=== PATIENT | male | born 1960 | race Caucasian/White ===

== ENCOUNTER → 2023-12-13 07:51 | Outpatient (REF) | payer OTHER, SELFPAY | LOC: RAD 07:51 | PROVIDERS: ATTENDING PHYSICIAN Surgery Vascular Surgery; FAMILY PHYSICIAN Family Medicine | DX: I73.9 Peripheral vascular disease, unspecified (principal) | CPT/HCPCS: 93922; 93925 ==

== ENCOUNTER 2024-05-21 19:44 | Emergency (ER) | payer OTHER, SELFPAY ==
[2024-05-21 19:49] VITALS: BP 154/84
--- NOTE | 2024-05-21 20:16 | ED.GENMED ---
History of Present Illness
General
Chief Complaint: Chest Pain
Time Seen by Provider: 05/21/24 20:14
History of Present Illness
History of Present Illness:
TIME OF INITIAL ENCOUNTER: 8:20 PM
HPI: At some point yesterday, he had some chest discomfort. It recurred today intermittently throughout the day. His symptoms are not exertional in nature. He has no associated shortness of breath. He had a cath that was relatively unremarkable
[place] [address] Arroyo and is known Dr. Chacon. His symptoms last for just a few minutes at a time. He was never diaphoretic. He has been having some nosebleeds as well and in the past has been thrombocytopenic. At times his symptoms worsen
when he lifts his left arm at the shoulder.
EXAM:
GENERAL: Well appearing in no distress
HEENT: Moist oral mucosa, no active bleeding to either nostril
CARDIOVASCULAR: No murmurs, normal heart rate, regular rhythm, No chest wall tenderness
PULMONARY: No respiratory distress, breath sounds are clear and equal
ABDOMEN: Soft with no peritoneal signs, no tenderness
NEUROLOGIC: Excellent strength all extremities, no coordination deficits
PSYCHIATRIC: Appropriate mental status, normal insight and judgement
EXTREMITIES: Nontender, no edema, moves all extremities equally
SKIN: No rash, no lesions
NUMBER AND COMPLEXITY OF PROBLEMS ADDRESSED AT THE ENCOUNTER
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
� Acute Exacerbation and/or Progression of Chronic Illness: This is an acute problem
� Differential Diagnosis includes: Musculoskeletal chest wall pain, anxiety, ACS
AMOUNT AND/OR COMPLEXITY OF DATA TO BE REVIEWED AND ANALYZED
� I performed an independent evaluation of and my interpretation is:
EKG:Sinus 87 left bundle branch block, no significant change from 11/04/2022
CT:
X-rays:
Laboratory Studies: White count 5.9, transaminases minimally elevated, troponin 0.017
Other:
� Review of other/old records: The patient was admitted here with [facility] in November 2022; cath from [address] Arroyo showed no significant obstructive CAD
� Clinical information was obtained by an independent historian: None needed
� Prescriptions/Medications Considered but not given:
� Further testing considered but not performed: I considered checking second troponin however symptoms started 24 hours ago and have not acutely worsened. I did offer to do a second troponin however the patient strongly prefers
to go home at this time as he has not had any further symptoms.
RISK OF COMPLICATIONS AND/OR MORBIDITY OR MORTALITY OF PATIENT MANAGEMENT
� Social determinants of health affecting care: Lives at home
� Discussion with other providers:
� Escalation of care including admission/observation vs risk of discharge considered: Initial EKG is unchanged from prior. His sats are 100%. He never had any shortness of breath. He went on a 1 mile walk today and did not
have any exertional symptoms at that time. At times his symptoms worsens when he lifts his left arm. Currently is pain-free.
ANY OTHER UPDATES:
9:15 PM: I reassessed patient. See above. He will follow-up Dr. Chacon. He has been chest pain-free throughout his stay in the department. I did inform him of the slightly low platelets which may explain some of the nosebleeds but also I
recommended that he tries saline sprays.
Past History
Past History
ED Past Medical History: CAD (No stents), HTN, Hypercholesterolemia, IDDM and Other (PAD); Negative Renal failure
ED Past Surgical History: Other (Vascular, Left toe amputation)
Social History
Tobacco: Non-smoker
Alcohol: Occasional
Drug: None
Personal:
Living: with family
Employment: Employed
Family History
Family History: Diabetes
Phy Exam
Physical Exam
Physical Exam:
See HPI
Scores
Heart Score for Chest Pain Patients
STEMI patient?: Not applicable
Course
Orders/Labs/Results
Orders:
Orders
05/21/24 19:44
ECG [Electrocardiogram (*1)] Urgent
Reason for Study: Chest Pain
05/21/24 19:45
EKG- Treatment ONCE
05/21/24 20:36
Complete Blood Count/With Diff Urgent
Comprehensive Metabolic Panel Urgent
Magnesium Urgent
Troponin I Urgent
Abnormal Lab Results
05/21/24
20:36
RBC 4.44 L 10^6/uL
(4.70-6.10)
Plt Count 96 L 10^3/uL
(130-400)
Glucose 125 H mg/dl
(70-99)
AST 71 H U/L
(17-59)
ALT 61 H U/L
(0-50)
05/21/24 20:36
05/21/24 20:36
Vital Signs
Initial and Last Documented VS:
Initial Vital Signs
Temp Pulse Resp BP Pulse Ox
98.1 F 98 20 154/84 100
05/21/24 19:49 05/21/24 19:49 05/21/24 19:49 05/21/24 19:49 05/21/24 19:49
Last Documented Vital Signs
Temp Pulse Resp BP Pulse Ox
98.1 F 89 20 144/73 96
05/21/24 19:49 05/21/24 21:00 05/21/24 21:00 05/21/24 20:36 05/21/24 21:00
*Critical Care Note
Total Time (30-74mins, 75-104mins- exclusive of procedures): Not Applicable
ED Attending Note
-
Portions of this chart may have been created with voice recognition software.� Occasional wrong word or��sound alike� substitutions may have occurred due to the inherent limitations of voice recognition software.
Discharge Plan
Departure
Patient Disposition: Home (Routine Discharge)
Date of Disposition: 05/21/24
Time of Disposition: 21:27
Patient with high blood pressure during this ER visit?: Yes
Discharge Problem:
Chest pain
Instructions: Chest Pain CBC Follow Up
Prescriptions:
No Action
atorvastatin 40 MG tablet
40 mg PO DAILY
metoprolol succinate 50 MG tablet extended release 24 hr
50 mg PO HS
aspirin 81 MG tablet,delayed release (DR/EC)
81 mg PO DAILY
acetaminophen [Tylenol Extra Strength] 500 MG tablet
1,000 mg PO Q6H PRN (Reason: mild pain)
multivitamin with folic acid [Tab-A-Ana María] 1 TABLET tablet
1 tab PO DAILY
insulin lispro 100 unit/mL insulin pen
16 unit SC AC
Levemir FlexPen 100 unit/mL (3 mL) insulin pen
42 unit SC HS
Referrals:
Liliya Tamayo MD [Family Provider] -
Activity Restrictions/Additional Instructions:
The EKG appears unchanged from prior. Cardiac blood work called troponin is within normal limits. I recommend that you follow-up with Dr. Chacon. Return here if worse or other concerns.
Interventions
Interventions:
*Risk Screen - Suicide Last Done: 05/21/24 19:49
*General Assessment Last Done: 05/21/24 20:30
*Neglect/Abuse Screening Last Done: 05/21/24 19:49
*ED COVID-19 Vaccine History Last Done: 05/21/24 20:30
ED- Cardiac Assessment Last Done: 05/21/24 20:30
Discharge Date and Time
Print Language: INDIAN
[2024-05-21 20:30] VITALS: BMI 23.7
[2024-05-21 20:36] VITALS: BP 144/73
[2024-05-21 20:55] LABS: % Basophils 0.2 % (0-2); % Eosinophils 1.9 % (0-6); % Immature Granulocytes 0.3 % (0-0.5); % Lymphocytes 34.7 % (20.5-51.1); % Monocytes 8.8 % (1.7-9.3); % Neutrophils 54.1 % (42.2-75.2); Absolute Eosinophils 0.1 10^3/uL (0-0.7); Absolute Lymphocytes 2.1 10^3/uL (1.2-3.4); Absolute Monocytes 0.5 10^3/uL (0.1-0.6); Absolute Neutrophils 3.2 10^3/uL (1.4-6.5); Hematocrit 39.4 % (39.0-52.0); Hemoglobin 13.6 g/dL (13.0-18.0); Mean Corp Hgb Conc. 34.5 g/dL (33.0-37.0); Mean Corpuscular Hgb 30.6 pg (27.0-31.0); Mean Corpuscular Volume 88.7 fL (80.0-94.0); Nucleated Red Blood Cells % 0 % (-); Red Blood Cell Count 4.44 10^6/uL (4.70-6.10); Red Cell Dist. Width 12.5 % (11.5-14.5); White Blood Cell Count 5.9 10^3/uL (4.8-10.8)
[2024-05-21 21:01] LABS: ALT (SGPT) 61 U/L (0-50); AST (SGOT) 71 U/L (17-59); Albumin 4.4 g/dl (3.5-5.0); Alkaline Phosphatase 83 U/L (38-126); Blood Urea Nitrogen 15 mg/dl (9-20); Calcium 9.1 mg/dl (8.4-10.2); Carbon Dioxide 23 mmol/L (22-30); Chloride 104 mmol/L (98-107); Estimated Creatinine Clearance 78 ml/min; Glucose 125 mg/dl (70-99); Sodium 139 mmol/L (135-145); Total Bilirubin 0.8 mg/dl (0.2-1.3); Total Protein 7.5 g/dl (6.3-8.2); eGFR > 60.00
[2024-05-21 21:04] LABS: Mean Platelet Volume 8.8 fL (7.4-10.4); Platelet Count 96 10^3/uL (130-400)
[2024-05-21 21:07] LABS: Troponin I 0.017 ng/ml
[2024-05-21 21:37] VITALS: BP 151/85
== END 2024-05-21 21:38 | disposition home or self-care (01) ==
LOC: EMR 19:44
PROVIDERS: EMERGENCY PHYSICIAN Emergency Medicine; FAMILY PHYSICIAN Family Medicine
DX: R07.89 Other chest pain (principal); I10 Essential (primary) hypertension; E11.9 Type 2 diabetes mellitus without complications
CPT/HCPCS: 99284; 80053; 83735; 84484; 85025; 93005

== ENCOUNTER → 2024-05-23 12:00 | Outpatient (REF) | payer OTHER, SELFPAY | LOC: DHCBC/DCA 12:00 | PROVIDERS: ATTENDING PHYSICIAN Internal Medicine Cardiovascular Disease; FAMILY PHYSICIAN Family Medicine | DX: I50.22 Chronic systolic (congestive) heart failure (principal); I44.7 Left bundle-branch block, unspecified; R07.89 Other chest pain; I73.9 Peripheral vascular disease, unspecified | CPT/HCPCS: 78452; 93017; A9500; J2785 ==

== ENCOUNTER → 2024-06-05 13:43 | Outpatient (REF) | payer OTHER, SELFPAY | LOC: RAD 13:43 | PROVIDERS: ATTENDING PHYSICIAN Surgery Vascular Surgery; FAMILY PHYSICIAN Family Medicine | DX: I73.9 Peripheral vascular disease, unspecified (principal) | CPT/HCPCS: 93922; 93925 ==

== ENCOUNTER → 2024-06-23 07:56 | Outpatient (REF) | payer OTHER, SELFPAY | LOC: RCS 07:56 | PROVIDERS: ATTENDING PHYSICIAN Internal Medicine Cardiovascular Disease; FAMILY PHYSICIAN Family Medicine | DX: I44.7 Left bundle-branch block, unspecified (principal); I73.9 Peripheral vascular disease, unspecified; I50.22 Chronic systolic (congestive) heart failure; R07.89 Other chest pain | CPT/HCPCS: 93306 ==

== ENCOUNTER → 2024-09-19 13:50 | Outpatient (REF) | payer BC, SELFPAY | LOC: HWRAD 13:50 | PROVIDERS: ATTENDING PHYSICIAN Internal Medicine Critical Care Medicine; FAMILY PHYSICIAN Family Medicine | DX: R91.1 Solitary pulmonary nodule (principal) | CPT/HCPCS: 71250 ==

== ENCOUNTER → 2024-12-15 07:51 | Outpatient (REF) | payer BC, SELFPAY | LOC: RAD 07:51 | PROVIDERS: ATTENDING PHYSICIAN Registered Nurse; FAMILY PHYSICIAN Family Medicine | DX: I73.9 Peripheral vascular disease, unspecified (principal) | CPT/HCPCS: 93922; 93925 ==